=== PATIENT | male | born 1995 | race Hispanic/Latino ===

== ENCOUNTER 2024-04-20 12:24 | Emergency (ER) | payer OTHER ==
[~2024-04-20] VITALS: Ht 177.8 cm; Wt 96.2 kg
[2024-04-20 13:28] LABS: BASOPHILS # (AUTO) 0.04 K/uL (0.00-0.20); BASOPHILS % (AUTO) 0.3 % (0.0-5.0); EOSINOPHILS # (AUTO) 0.01 K/uL (0.00-0.70); EOSINOPHILS % (AUTO) 0.1 % (0.0-8.0); HEMATOCRIT 49.5 % (42-54); IMMATURE GRANULOCYTE ABSOLUTE 0.05 K/uL (0-1); LYMPHOCYTES # (AUTO) 0.6 K/uL (1.0-4.8); LYMPHOCYTES % (AUTO) 4.3 % (21.0-51.0); MEAN CORPUSCULAR HEMOGLOBIN 30.3 pg (27.0-33.0); MEAN CORPUSCULAR HGB CONC 33.7 g/dL (32.0-36.0); MEAN CORPUSCULAR VOLUME 89.7 fL (79-99); MONOCYTES # (AUTO) 0.6 K/uL (0.1-1.0); MONOCYTES % (AUTO) 4.4 % (3.0-13.0); NEUTROPHILS % (AUTO) 90.6 % (40.0-77.0); PLATELET COUNT (AUTO) 375 K/uL (130-400); RED BLOOD CELL COUNT(AUTO) 5.52 MIL/uL (4.50-6.20); RED CELL DISTRIBUTION WIDTH 12.2 % (11.0-15.5); WHITE BLOOD COUNT (AUTO) 14.3 K/uL (4.8-10.8)
[2024-04-20] MEDS: 0.9%NACL 1000ML 1,000 ML IV ONE (13:29)
[2024-04-20 13:37] LABS: POTASSIUM 3.9 mmol/L (3.5-5.1)
[2024-04-20 13:47] LABS: APPEARANCE,URINE CLEAR (CLEAR); BILIRUBIN,URINE NEGATIVE (NEGATIVE); COLOR,URINE YELLOW (YELLOW); GLUCOSE, URINE (UA) NEGATIVE (NEGATIVE); KETONES,URINE NEGATIVE (NEGATIVE); LEUKOCYTE ESTERASE ,URINE NEGATIVE Leu/uL (NEGATIVE); NITRATE,URINE NEGATIVE (NEGATIVE); OCCULT BLOOD,URINE SMALL (NEGATIVE); PH,URINE 5.5 (5.0-8.0); PROTEIN,URINE 10 mg/dL (NEGATIVE); UROBILINOGEN,URINE 0.2 mg/dL (0.2-1.0)
[2024-04-20 13:57] LABS: ADD UA MICROSCOPIC YES
[2024-04-20 14:02] LABS: BACTERIA,URINE RARE /HPF (None Seen); MUCUS,URINE RARE LPF (None Seen); SQUAMOUS EPITHELIAL CELL,UR RARE /HPF (0-2); WBC,URINE 0-1 /HPF (0-1)
[2024-04-20] MEDS ORDERED: IOHEXOL-350 75 ML VIAL IV ONE (14:11)
--- NOTE | 2024-04-20 15:15 | HMCIMG ---
CT ABDOMEN/PELVIS W/CONTRAST REASON: lower abd pain COMPARISON: None. TECHNIQUE: Images are obtained from lung bases to symphysis pubis following IV contrast, 75 cc Omnipaque 350. FINDINGS: Lung bases are clear. There are no focal liver lesions. There are normal-appearing kidneys.. Spleen and pancreas appear unremarkable. The gallbladder appears normal as well. Bowel loops appear unremarkable. This includes normal appearance of the appendix There is no evidence of free fluid or intraperitoneal air. There are no focal fluid collections. Aorta and retroperitoneum appear normal as do pelvic soft tissue structures. The anterior abdominal wall is intact. Osseous structures appear unremarkable. IMPRESSION: 1. Negative postcontrast CT abdomen and pelvis. CT was performed with one or more following dose reduction techniques: automated exposure control, adjustment of the mA and kv according to patient's size, or use of a iterative reconstruction technique.
[2024-04-20] MEDS ORDERED: ONDA-243 PO (15:28)
--- NOTE | 2024-04-20 15:31 | ERN ---
General Chief Complaint: Abdominal Pain Stated Complaint: ABDOMINAL PAIN Time Seen by MD: 12:36 History of Present Illness Initial Comments 29-year-old male otherwise healthy presents for nausea and vomiting diarrhea and abdominal pain. Patient reports beginning yesterday he had multiple episodes of vomiting also some watery stools. He went to his PCP and was told he had an elevated white count and he did come to the ER for imaging to rule out appendicitis. Currently he has generalized abdominal discomfort and tenderness. No sore throat cough or congestion. Allergies: Coded Allergies: No Known Allergies (Unverified Allergy, Unknown, 04/20/24) Past Medical History Past Medical History: Asthma Past Surgical History: None ROS Dictation CONSTITUTIONAL: No chills, no fever, no weakness, no diaphoresis, no malaise. HEAD/FACE: No signs of trauma. EENT: No eye pain, no blurred vision, no tearing, no double vision, no ear pain, no ear discharge, no nose pain, no nasal congestion, no throat pain, no throat swelling, no mouth pain. RESPIRATORY: No cough, no orthopnea, no SOB, no stridor, no wheezing. CARDIOVASCULAR: No chest pain, no edema, no palpitations, no syncope. GASTROINTESTINAL/ABDOMINAL: Generalized abdominal pain, vomiting, diarrhea GENITOURINARY: No abnormal discharge, no dysuria, no frequent urination, no hematuria. No complaints of pain in the genitals. MUSCULOSKELETAL: No back pain, no gout, no joint pain, no joint swelling, no muscle pain, no muscle stiffness, no neck pain. INTEGUMENTARY: No change in color, no change in hair/nails, no dryness, no lesion, no lumps, no rash. NEUROLOGICAL/PSYCH: No anxiety, not depressed, no emotional problem, no head ache, no numbness, no pre-existing deficit, no history of seizures, no tremors, no weakness. HEMATOLOGIC/LYMPHATIC: Not anemic, no history of blood clots, no apparent bleeding, no bruising, glands not swollen. All Systems Negative, Except as Noted. Physical Exam Physical Exam Dictation VITAL SIGNS: Reviewed. GENERAL APPEARANCE: Alert, oriented x3, no acute distress HEAD AND FACE: Non-traumatic. EYES: PERRL, pink conjunctivas, eyelid no trauma, anterior chamber clear. EARS: Pinnas intact and no signs of trauma or erythema. Ear canals clear and no discharge. TMs no erythema. NOSE: No discharge, no bleeding. OROPHARYNX: Mouth normal, teeth no caries, tongue pink. Pharynx clear, no erythema. Tonsils no exudates, no abscesses noted. Mucous membrane moist. NECK: Supple, non-tender, no thyromegaly, no masses, no JVD, no bruits. BREAST: Deferred. CHEST: No tenderness, no crepitus, no paradoxical movement, no retractions. LUNGS: Clear, well-ventilated, symmetric, no rales, no wheezing, no rhonchi, no stridor, good breath sounds bilaterally. HEART: Regular rate, regular rhythm, no murmur, no gallops. VASCULAR: No peripheral edema. ABDOMEN: Soft, positive bowel sounds, nondistended, no guarding, nontender, no rebound, no masses no hepatomegaly, no splenomegaly, no Cruz's sign, no hernias. RECTAL: Deferred. GENITAL: Deferred. NEUROLOGICAL: Normal speech, gross motor function intact, gross sensory function intact. MUSCULOSKELETAL: Neck nontender, full range of motion, back nontender, full range of motion. EXTREMITIES: Nontender, full range of motion. SKIN: Color pink, dry, no turgor, no rash, no lacerations, no abrasions, no contusions. LYMPHATICS: Deferred. Results Laboratory and Microbiology Lab and Micro Result Laboratory Tests Test 04/20/24 13:19 White Blood Count 14.3 K/uL (4.8-10.8) H Red Blood Count 5.52 MIL/uL (4.50-6.20) Hemoglobin 16.7 g/dL (14.0-18.0) Hematocrit 49.5 % (42-54) Mean Corpuscular Volume 89.7 fL (79-99) Mean Corpuscular Hemoglobin 30.3 pg (27.0-33.0) Mean Corpuscular Hemoglobin Concent 33.7 g/dL (32.0-36.0) Red Cell Distribution Width 12.2 % (11.0-15.5) Platelet Count 375 K/uL (130-400) Mean Platelet Volume 9.3 fL (7.5-10.5) Immature Granulocyte % (Auto) 0.3 % (0-1) Neutrophils (%) (Auto) 90.6 % (40.0-77.0) H Lymphocytes (%) (Auto) 4.3 % (21.0-51.0) L Monocytes (%) (Auto) 4.4 % (3.0-13.0) Eosinophils (%) (Auto) 0.1 % (0.0-8.0) Basophils (%) (Auto) 0.3 % (0.0-5.0) Neutrophils # (Auto) 13.0 K/uL (1.8-7.7) H Lymphocytes # (Auto) 0.6 K/uL (1.0-4.8) L Monocytes # (Auto) 0.6 K/uL (0.1-1.0) Eosinophils # (Auto) 0.01 K/uL (0.00-0.70) Basophils # (Auto) 0.04 K/uL (0.00-0.20) Absolute Immature Granulocyte (auto 0.05 K/uL (0-1) Nucleated Red Blood Cells 0.0 % (0.0-0.19) White Cell Morphology Comment See comments Urine Color YELLOW (YELLOW) Urine Appearance CLEAR (CLEAR) Urine pH 5.5 (5.0-8.0) Urine Specific [place] 1.032 (1.001-1.031) Urine Protein 10 mg/dL (NEGATIVE) H Urine Glucose (UA) NEGATIVE mg/dL (NEGATIVE) Urine Ketones NEGATIVE mg/dL (NEGATIVE) Urine Occult Blood SMALL (NEGATIVE) H Urine Nitrate NEGATIVE (NEGATIVE) Urine Bilirubin NEGATIVE mg/dL (NEGATIVE) Urine Urobilinogen 0.2 mg/dL (0.2-1.0) Urine Leukocyte Esterase NEGATIVE Reza/uL Urine RBC 2-5 /HPF (0-1) H Urine WBC 0-1 /HPF (0-1) Urine Squamous Epithelial Cells RARE /HPF (0-2) Urine Bacteria RARE /HPF (None Seen) Sodium Level 139 mmol/L (136-145) Potassium Level 3.9 mmol/L (3.5-5.1) Chloride Level 101 mmol/L (101-111) Carbon Dioxide Level 30 mmol/L (21-32) Blood Urea Nitrogen 14 mg/dL (7-18) Creatinine 1.0 mg/dL (0.5-1.3) Glomerular Filtration Rate Calc 104 mL/min (>90) Random Glucose 97 mg/dL (70-105) Lactic Acid Level 1.8 mmol/L (0.8-2.5) Total Calcium 9.1 mg/dL (8.5-10.1) Lipase 33 U/L (16-77) MDM CC: Abdominal pain, vomiting, diarrhea Historian: Patient Comorbidities: None Limitations by social determinants: None Differential diagnosis: Dehydration, electrolyte abnormality, surgical pathology, gastritis, gastroenteritis, other. Labs ( independently ordered interpreted by me: Leukocytosis 14.3 K, 90% neutrophils. No bands. Chemistry shows stable electrolytes, stable lactic acid, stable lipase. UA shows high specific gravity but otherwise unremarkable. CT scan of the abdomen and pelvis with contrast shows no acute abnormalities or surgical pathology. Patient's symptoms are consistent with gastroenteritis. He was some mild dehydration. Here in the ER patient received IV fluids. He is p.o. tolerant nontoxic in appearance. Likely gastroenteritis. We will DC with supportive care, prescri ption for Zofran, recommend PCP follow up REASON: lower abd pain ORDERING PHYSICIAN: RORO WEI DO PROCEDURE: ABD PEL W - CT ABDOMEN/PELVIS W/CONTRAST CT ABDOMEN/PELVIS W/CONTRAST REASON: lower abd pain COMPARISON: None. TECHNIQUE: Images are obtained from lung bases to symphysis pubis following IV contrast, 75 cc Omnipaque 350. FINDINGS: Lung bases are clear. There are no focal liver lesions. There are normal-appearing kidneys.. Spleen and pancreas appear unremarkable. The gallbladder appears normal as well. Bowel loops appear unremarkable. This includes normal appearance of the appendix There is no evidence of free fluid or intraperitoneal air. There are no focal fluid collections. Aorta and retroperitoneum appear normal as do pelvic soft tissue structures. The anterior abdominal wall is intact. Osseous structures appear unremarkable. IMPRESSION: 1. Negative postcontrast CT abdomen and pelvis. ED Course Orders Procedure Category Date Status Time Vital Signs Per CPOE 04/20/24 Transmitted Routine 12:45 Saline Lock Iv CPOE 04/20/24 Transmitted 12:45 Cbc With Differential LAB 04/20/24 Complete 12:45 Lipase LAB 04/20/24 Complete 12:45 Urinalysis Profile LAB 04/20/24 Complete 12:45 Basic Metabolic Panel LAB 04/20/24 Complete 12:45 Lactic Acid LAB 04/20/24 Complete 12:51 Blood Cult CICI 04/20/24 In Process 12:51 0.9%Nacl 1000ml (Ns PHA 04/20/24 Complete 1000ml) 13:00 Ct Abdomen/Pelvis CT 04/20/24 Resulted W/Contrast 13:17 Iohexol (Omnipaque) PHA 04/20/24 Complete 14:11 Current Medications Medications (Trade) Dose Ordered Sig/Vanesa Route PRN Reason Start Time Stop Time Status Last Admin Dose Admin Iohexol (Omnipaque) 75 ml STK-MED ONCE IV 04/20/24 14:11 04/20/24 14:11 DC Sodium Chloride 1,000 ml @ 0 mls/hr ONCE ONCE IV 04/20/24 13:00 04/20/24 13:01 DC 04/20/24 13:29 Vital Signs Date Time Temp Pulse Resp B/P (MAP) Pulse Ox O2 Delivery O2 Flow Rate FiO2 04/20/24 14:07 78 18 122/68 98 Room Air* 0 21 04/20/24 12:25 99.1 102 20 116/74 100 Room Air DX & DISP Disposition: Discharge Departure Impression: Primary Impression: Gastroenteritis Condition: Stable Scripts Ondansetron (Ondansetron Odt) 4 Mg Tab.rapdis 1 TAB PO Q6HPRN PRN for nausea/vomiting for 4 Days, #16 TAB 0 Refills Prov: RORO WEI DO 04/20/24 Additional Instructions: Your symptoms are consistent with a gastroenteritis, which is inflammation of the stomach and intestines that it causes diarrhea, vomiting, abdominal pain. This condition rarely requires antibiotics in his usually self resolving. Your vital signs have been stable in the ER. Your blood work shows an elevated white blood cell count consistent with inflammation, but is otherwise unremarkable. The CT scan of your abdomen and pelvis does not show any dangerous findings. Please drink plenty of liquids. Avoid apple juice, Gatorade or commercial soft drinks. I recommend starting with the BRAT (bananas, rice, applesauce, toast) diet. You can advance her diet slowly as tolerated. Avoid dairy products, fatty foods, and high sugar foods. I have prescribed ondansetron, which is an anti vomiting medication. You can u se as needed up to 3 times a day. Avoid anti diarrheal medications. Practice good hand hygiene. Please follow up with the primary doctor in one week or so if you continue with symptoms. Please return to the emergency department if you have any concerning symptoms such as severe dehydration, persistent vomiting, bloody stools, or high fever. Referrals: SELF,REFERRAL (PCP) RORO WEI DO Apr 20, 2024 15:31
[2024-04-20 16:06] VITALS: BP 110/61; PULSE 95; RESP 18; TEMP 99.7; O2SAT 100
== END 2024-04-20 16:07 | disposition home or self-care (01) ==
LOC: EDH 12:24
DX: K52.9 Noninfective gastroenteritis and colitis, unspecified (principal); J45.909 Unspecified asthma, uncomplicated
CPT/HCPCS: 99285; 74177; 80048; 83690; 85025; 87040 ×2; 83605; 81001; 36415; J7030; Q9967